=== PATIENT | male | born 2000 | race African-American/Black ===

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

== ENCOUNTER 2022-02-21 21:39 | Emergency (ER) | payer MEDICAID, OTHER ==
[~2022-02-21] VITALS: Ht 180.3 cm; Wt 64.8 kg
[2022-02-21 21:53] VITALS: BP 113/71
[2022-02-21] MEDS ORDERED: KETOROLAC 30MG/ML VIAL IM ONE (22:30)
[2022-02-21] MEDS ORDERED: NAPR-1176 MT (23:12)
[2022-02-21] MEDS ORDERED: CYCL5TAB MT (23:12)
== END 2022-02-22 00:05 | disposition home or self-care (01) ==
LOC: ER 21:39
DX: M54.59 Other low back pain (principal)
CPT/HCPCS: 96372; 99283; J1885